=== PATIENT | male | born 1970 | race African-American/Black ===

== ENCOUNTER 2017-10-23 13:11 | Emergency (ER) | payer SELFPAY ==
[~2017-10-23] VITALS: Ht 182.9 cm; Wt 86.5 kg
[2017-10-23] MEDS ORDERED: CEFTRIAXONE 250 MG IM ONE (14:00)
[2017-10-23] MEDS ORDERED: AZITHROMYCIN 500 MG TABLET PO ONE (14:00)
[2017-10-23 14:31] LABS: MEAN CORPUSCULAR HEMOGLOBIN 30.7 pg (27.5-34.5); MEAN CORPUSCULAR HGB CONC 33.1 g/dL (33.2-36.2); MEAN CORPUSCULAR VOLUME 92.6 fL (81-97); PLATELET COUNT 435 x10^3/uL (130-400); RED BLOOD COUNT 4.84 x10^6/uL (4.38-5.82); RED CELL DISTRIBUTION WIDTH 13.9 % (9.4-14.8)
[2017-10-23 14:36] LABS: ALANINE AMINOTRANSFERASE 17 U/L (12-78); ANION GAP 4 mmol/L (5-15); CALCIUM 9.3 mg/dL (8.5-10.1); CHLORIDE 106 mmol/L (98-107)
[2017-10-23] MEDS ORDERED: AZITHROMYCIN 500 MG TABLET ONE (14:38)
[2017-10-23 14:39] LABS: ALKALINE PHOSPHATASE 73 U/L (45-117); BILIRUBIN,TOTAL 0.8 mg/dL (0.2-1.0); TOTAL PROTEIN 8.8 g/dL (6.4-8.2)
[2017-10-23] MEDS ORDERED: CEFTRIAXONE 250 MG ONE (14:39)
[2017-10-23] MEDS ORDERED: LIDOCAINE-MPF 1%, 2ML ONE (14:40)
[2017-10-23 14:52] VITALS: BP 154/109
[2017-10-23 14:59] LABS: BASOPHILS # (AUTO) 0.03 x10^3/uL (0-0.1); BASOPHILS % (AUTO) 1 % (0-1); EOSINOPHILS # (AUTO) 0.07 x10^3/uL (0-0.4); EOSINOPHILS % (AUTO) 2 % (1-7); LYMPHOCYTES % (AUTO) 38 % (22-44); MD SCAN; MONOCYTES # (AUTO) 0.37 x10^3/uL (0.2-0.8); MONOCYTES % (AUTO) 8 % (2-9); NEUTROPHILS # (AUTO) 2.28 x10^3/uL (1.8-6.8); NEUTROPHILS % (AUTO) 51 % (42-75)
== END 2017-10-23 15:03 | disposition home or self-care (01) ==
LOC: ED 14:30
DX: N48.89 Other specified disorders of penis (principal); R10.13 Epigastric pain; I10 Essential (primary) hypertension
CPT/HCPCS: 36415; 74021; 80053; 83690; 85025; 87491; 87591; 96372; 99285; J0696

== ENCOUNTER 2018-03-27 17:57 | Emergency (ER) | payer OTHER ==
[~2018-03-27] VITALS: Ht 182.9 cm; Wt 88.0 kg
[2018-03-27 18:05] VITALS: BP 147/96
== END 2018-03-27 19:27 | disposition left against medical advice (07) ==
LOC: ED 19:21
DX: S20.1 Other and unspecified superficial injuries of breast (principal); I10 Essential (primary) hypertension; W50.3XXD Accidental bite by another person, subsequent encounter
CPT/HCPCS: 99281